=== PATIENT | male | born 1960 | race Caucasian/White ===

== ENCOUNTER 2016-10-11 21:20 | Emergency (ER) | payer SELFPAY ==
[2016-10-11] MEDS ORDERED: Albuterol-Ipratrop 3 mg / 0.5 (3 ml) UD INH STA (22:17)
[2016-10-11] MEDS ORDERED: Albuterol-Ipratrop 3 mg / 0.5 (3 ml) UD ONE (22:29)
[2016-10-11 23:03] VITALS: RESP 18
[2016-10-11 23:47] VITALS: BP 170/89; PULSE 91; TEMP 98.3; O2SAT 97
--- NOTE | 2016-10-12 00:01 | C.PDOC ---
History Of Present Illness 56 year old male presents to the ED with complaints of non-productive cough, fever, and mild SOB for two days. Patient denies chest pain, palpitations, abdominal pain, nausea/vomiting. Time Seen by Provider: 10/11/16 22:12 Chief Complaint (Nursing): Cough, Cold, Congestion History Per: Patient History/Exam Limitations: no limitations Onset/Duration Of Symptoms: Days (2 days ) Current Symptoms Are (Timing): Still Present Sick Contacts (Context): None Associated Symptoms: Fever, Cough. denies: Sputum, Nausea, Vomiting, Diarrhea Severity: Mild Past Medical History Reviewed: Historical Data, Nursing Documentation, Vital Signs Vital Signs: Last Vital Signs Temp 98.3 F 10/11/16 23:47 Pulse 91 H 10/11/16 23:47 Resp 18 10/11/16 23:47 BP 170/89 H 10/11/16 23:47 Pulse Ox 97 10/19/16 09:39 - Medical History PMH: Arthritis, HTN Family History: States: No Known Family Hx - Social History Hx Alcohol Use: No Hx Substance Use: No - Immunization History Hx Tetanus Toxoid Vaccination: No Hx Influenza Vaccination: No Hx Pneumococcal Vaccination: No Review Of Systems Except As Marked, All Systems Reviewed And Found Negative. Constitutional: Positive for: Fever. Negative for: Chills Cardiovascular: Negative for: Chest Pain, Palpitations Respiratory: Positive for: Cough, Shortness of Breath Gastrointestinal: Negative for: Nausea, Vomiting, Abdominal Pain, Diarrhea Physical Exam - Physical Exam Appears: Well, Non-toxic, No Acute Distress, Other (speaking in full sentences, coughing occasionally ) Skin: Normal Color, Warm, Dry, No Rash Head: Normacephalic Eye(s): bilateral: Normal Inspection Oral Mucosa: Moist Neck: Supple Cardiovascular: Rhythm Regular Respiratory: Normal Breath Sounds, No Rales, No Rhonchi, No Wheezing Gastrointestinal/Abdominal: Normal Exam, Bowel Sounds, Soft, No Tenderness Extremity: Normal ROM, No Tenderness, No Pedal Edema, No Calf Tenderness, No Deformity, No Swelling Neurological/Psych: Oriented x3 Gait: Steady ED Course And Treatment O2 Sat by Pulse Oximetry: 97 (RA) Pulse Ox Interpretation: Normal - Radiology CXR: Interpreted by Me, Viewed By Me CXR Interpretation: Yes: No Acute Disease. No: Infiltrates Progress Note: CXR ordered and reviewed. Patient given duoneb treatment, PO enalapril and PO metformin (patient's daily doses), PO azithromycin. Reevaluation Time: 00:00 Reassessment Condition: Improved (On reassessment, patient is resting comfortably and states he feels better. On exam, he has good air entry B/L without wheezing or accessory muscle use. Rxs given for azithromycin, albuterol inhaler, Tessalon. Patient instructed to follow up with PMD/clinic in 1-2 days, and understands he should return to ED if symptoms worsen.) Disposition Counseled Patient/Family Regarding: Studies Performed, Diagnosis, Need For Followup, Rx Given - Disposition Referrals: [facility] [Outside] Disposition: HOME/ ROUTINE Disposition Time: 00:00 Condition: STABLE Additional Instructions: follow up with your doctor/clinic in 1-2 days use medications as directed return to er if symptoms worsen Prescriptions: Albuterol HFA [Ventolin HFA 90 mcg/actuation (8 g)] 0.09 mg IH Q4 PRN #1 puff PRN Reason: Wheezing Azithromycin 1 tab PO DAILY #4 tab Benzonatate [Tessalon Perles] 100 mg PO BID PRN #15 sgl PRN Reason: Cough Instructions: Upper Respiratory Infection (ED), Acute Bronchitis (ED) Print Language: GEORGIAN - POA Present On Arrival: None - Clinical Impression Clinical Impression: Bronchitis, Upper respiratory infection - Scribe Statement The provider has reviewed the documentation as recorded by the Scribe María Perez All medical record entries made by the Antwanibe were at my direction and personally dictated by me. I have reviewed the chart and agree that the record accurately reflects my personal performance of the history, physical exam, medical decision making, and the department course for this patient. I have also personally directed, reviewed, and agree with the discharge instructions and disposition.
--- NOTE | 2016-10-12 10:21 | RAD ---
HISTORY: cough, chills COMPARISON: No prior. TECHNIQUE: Chest PA and lateral FINDINGS: LUNGS: There are chronic changes in both lungs. No focal consolidation. PLEURA: No significant pleural effusion identified. No pneumothorax apparent. CARDIOVASCULAR: Normal. OSSEOUS STRUCTURES: No significant abnormalities. VISUALIZED UPPER ABDOMEN: Normal. OTHER FINDINGS: None. IMPRESSION: Chronic changes in both lungs. No active pulmonary disease.
== END 2016-10-12 00:07 | disposition home or self-care (01) ==
LOC: C.ER 21:20
DX: J06.9 Acute upper respiratory infection, unspecified (principal); J40 Bronchitis, not specified as acute or chronic